=== PATIENT | male | born 1960 | race Caucasian/White ===

== ENCOUNTER 2021-11-29 10:30 | Outpatient (RCR) | payer BC, SELFPAY ==
--- NOTE | 2021-10-12 15:13 | URNOTE ---
Received request for prior auth for Cisplatin ([id number]) and Aloxi ([id number]). Per automated message at [facility], prior auth is not required for these medications. Conf #[id number]
--- NOTE | 2021-10-14 22:49 | ONC.NURNOTE ---
cisplatin dose changed to 100% per request of Dr. Twin Leon 10/14/21. Dosing should be 40mg/m2 weekly concurrent with radiation therapy.
--- NOTE | 2021-10-21 16:01 | ONC.NURNOTE ---
Call to [facility] to confirm 1st chemo appt on Monday instructed to come well hydrated bring binder to appt- as nurses will review contents of binder
--- NOTE | 2021-10-22 14:01 | URNOTE ---
Received request for prior auth for Fosaprepitant ([id number]). Per automated message at [facility], prior authorization is not required. Call ref #[id number]
[2021-10-25 09:08] LABS: Basophils Absolute Auto 0.02 K/uL (0.00-0.30); Basophils Percent Auto 0.2 % (0.0-3.0); Eosinophils Absolute Auto 0.49 K/uL (0.00-0.50); Eosinophils Percent Auto 5.5 % (0.0-7.0); Hematocrit 41.6 % (37.0-53.0); Hemoglobin* 14.1 gm/dL (13.5-17.5); Immature Granulocytes Abs Auto 0.01 K/uL (0.00-0.30); Mean Corpuscular HGB Conc 34 gm/dL (32-36); Mean Corpuscular Hemoglobin 30 pg (26-34); Mean Corpuscular Volume 88 fL (80-100); Monocytes Percent Auto 6.4 % (0.0-11.0); Neutrophils Percent Auto 73.8 % (42.0-72.0); Platelet Count* 284 K/uL (140-440); RDW Coefficient of Variation % 12.3 % (11.5-15.5); Red Blood Count 4.71 m/uL (4.30-5.90); White Blood Count* 8.92 K/uL (4.50-11.00)
[2021-10-25 09:13] LABS: Slide Review Reflex No
[2021-10-25 09:40] LABS: Albumin* 4.1 g/dL (3.3-5.0); Chloride* 105 mmol/L (96-114)
[2021-10-25 09:41] LABS: Potassium* 4.1 mmol/L (3.6-5.1); Sodium* 137 mmol/L (135-149)
[2021-10-25 09:43] LABS: Aspartate Amino Transferase* 24 U/L (12-35); Bilirubin Total* 0.3 mg/dL (0.1-1.5); Carbon Dioxide* 25 mmol/L (20-32); Creatinine* 0.7 mg/dL (0.5-1.5); Estimated Glomerular Filt Rate 105 ml/min
[2021-10-25 09:44] LABS: Alanine Aminotransferase* 24 U/L (4-50); Alkaline Phosphatase* 80 U/L (40-150); Blood Urea Nitrogen* 19 mg/dL (7-30); Calcium* 9.2 mg/dL (8.4-10.6); Glucose* 115 mg/dL (60-115)
[2021-10-26 09:06] VITALS: BP 129/85; PULSE 98; RESP 16; TEMP 36.2; O2SAT 98
[2021-10-26] MEDS: PALONOSETRON 0.25 MG/5 ML inj IV (10:27)
[2021-10-26] MEDS: FOSAPREPITANT 150 MG inj 150 MG in 0.9 % SODIUM CHLORIDE 250 ml 250 ML 510 MG IVPB (10:28)
[2021-10-26] MEDS: 0.9 % SODIUM CHLORIDE 1000 ml 1,000 ML 500 ML IV (10:29)
[2021-10-26] MEDS: dexAMETHasone 10 MG in 0.9 % SODIUM CHLORIDE 100 ml 100 ML 404 MG IVPB (11:15)
[2021-10-26 13:18] LABS: Magnesium* 2.1 mg/dL (1.5-2.6)
--- NOTE | 2021-10-27 08:43 | ONC.NURNOTE ---
Called pt to check in day after 1st chemo; LM to call back with any questions or concerns.
[2021-11-01 09:38] VITALS: BP 113/76; PULSE 97; RESP 16; TEMP 36.2; O2SAT 97
[2021-11-01 10:05] LABS: Basophils Absolute Auto 0.02 K/uL (0.00-0.30); Basophils Percent Auto 0.2 % (0.0-3.0); Eosinophils Absolute Auto 0.51 K/uL (0.00-0.50); Hemoglobin* 14.6 gm/dL (13.5-17.5); Immature Granulocytes Abs Auto 0.03 K/uL (0.00-0.30); Lymphocytes Percent Auto 15.3 % (20-44); Mean Corpuscular HGB Conc 33 gm/dL (32-36); Mean Corpuscular Hemoglobin 30 pg (26-34); Mean Corpuscular Volume 89 fL (80-100); Monocytes Percent Auto 9.3 % (0.0-11.0); Neutrophils Absolute Auto 5.86 K/uL (1.7-7.0); Neutrophils Percent Auto 68.8 % (42.0-72.0); Platelet Count* 296 K/uL (140-440); RDW Coefficient of Variation % 12.4 % (11.5-15.5); Red Blood Count 4.95 m/uL (4.30-5.90); White Blood Count* 8.51 K/uL (4.50-11.00)
[2021-11-01 10:08] LABS: Albumin* 4.3 g/dL (3.3-5.0); Chloride* 98 mmol/L (96-114); Potassium* 4.3 mmol/L (3.6-5.1); Sodium* 136 mmol/L (135-149)
[2021-11-01 10:10] LABS: Creatinine* 0.7 mg/dL (0.5-1.5); Estimated Glomerular Filt Rate 105 ml/min
[2021-11-01 10:11] LABS: Alanine Aminotransferase* 23 U/L (4-50); Alkaline Phosphatase* 78 U/L (40-150); Aspartate Amino Transferase* 21 U/L (12-35); Bilirubin Total* 0.6 mg/dL (0.1-1.5); Blood Urea Nitrogen* 21 mg/dL (7-30); Calcium* 9.6 mg/dL (8.4-10.6); Carbon Dioxide* 30 mmol/L (20-32); Glucose* 109 mg/dL (60-115); Total Protein* 7.3 g/dL (6.0-8.3)
[2021-11-01 10:19] LABS: Slide Review Reflex No
[2021-11-01 10:35] LABS: Magnesium* 2.1 mg/dL (1.5-2.6)
[2021-11-01] MEDS: 0.9 % SODIUM CHLORIDE 1000 ml 1,000 ML 500 ML IV (10:53)
[2021-11-01] MEDS: dexAMETHasone 10 MG in 0.9 % SODIUM CHLORIDE 100 ml 100 ML 404 MG IVPB (11:36)
[2021-11-01] MEDS: PALONOSETRON 0.25 MG/5 ML inj IV (11:36)
[2021-11-01] MEDS: FOSAPREPITANT 150 MG inj 150 MG in 0.9 % SODIUM CHLORIDE 250 ml 250 ML 510 MG IVPB (11:56)
[2021-11-09 09:20] LABS: Basophils Absolute Auto 0.03 K/uL (0.00-0.30); Basophils Percent Auto 0.3 % (0.0-3.0); Eosinophils Absolute Auto 0.29 K/uL (0.00-0.50); Hematocrit 42.5 % (37.0-53.0); Hemoglobin* 14.2 gm/dL (13.5-17.5); Immature Granulocytes Abs Auto 0.01 K/uL (0.00-0.30); Lymphocytes Percent Auto 6.9 % (20-44); Mean Corpuscular HGB Conc 33 gm/dL (32-36); Mean Corpuscular Hemoglobin 29 pg (26-34); Mean Corpuscular Volume 88 fL (80-100); Monocytes Percent Auto 6.9 % (0.0-11.0); Neutrophils Percent Auto 82.8 % (42.0-72.0); Platelet Count* 217 K/uL (140-440); RDW Coefficient of Variation % 12.4 % (11.5-15.5); Red Blood Count 4.83 m/uL (4.30-5.90); White Blood Count* 9.74 K/uL (4.50-11.00)
[2021-11-09 09:23] LABS: Slide Review Reflex No
[2021-11-09 09:26] VITALS: BP 123/78; PULSE 78; RESP 16; TEMP 37.1; O2SAT 98
[2021-11-09 09:41] LABS: Albumin* 4.2 g/dL (3.3-5.0); Chloride* 102 mmol/L (96-114); Sodium* 137 mmol/L (135-149)
[2021-11-09 09:42] LABS: Potassium* 4.2 mmol/L (3.6-5.1)
[2021-11-09 09:44] LABS: Alanine Aminotransferase* 25 U/L (4-50); Alkaline Phosphatase* 84 U/L (40-150); Aspartate Amino Transferase* 21 U/L (12-35); Bilirubin Total* 0.2 mg/dL (0.1-1.5); Blood Urea Nitrogen* 22 mg/dL (7-30); Carbon Dioxide* 28 mmol/L (20-32); Creatinine* 0.7 mg/dL (0.5-1.5); Estimated Glomerular Filt Rate 105 ml/min; Glucose* 102 mg/dL (60-115); Magnesium* 2.1 mg/dL (1.5-2.6); Total Protein* 6.9 g/dL (6.0-8.3)
[2021-11-09 09:45] LABS: Calcium* 9.3 mg/dL (8.4-10.6)
[2021-11-09] MEDS: 0.9 % SODIUM CHLORIDE 1000 ml 1,000 ML 500 ML IV (10:17)
[2021-11-09] MEDS: PALONOSETRON 0.25 MG/5 ML inj IV (11:23)
[2021-11-09] MEDS: dexAMETHasone 10 MG in 0.9 % SODIUM CHLORIDE 100 ml 100 ML 404 MG IVPB (11:23)
[2021-11-09] MEDS: FOSAPREPITANT 150 MG inj 150 MG in 0.9 % SODIUM CHLORIDE 250 ml 250 ML 510 MG IVPB (11:45)
--- NOTE | 2021-11-09 15:12 | ONC.NURNOTE ---
lower lip increase swelling, redness and white line on gums. no open areas. ok to treat per [facility]. DEEP. enc pt to rinse and spit with saltwater or soda water. pt seeing radiologist today and will be showing them his mouth and asking for magic mouth wash.
[2021-11-15 09:13] LABS: Albumin* 4.4 g/dL (3.3-5.0); Basophils Absolute Auto 0.02 K/uL (0.00-0.30); Basophils Percent Auto 0.3 % (0.0-3.0); Chloride* 100 mmol/L (96-114); Eosinophils Absolute Auto 0.25 K/uL (0.00-0.50); Eosinophils Percent Auto 3.4 % (0.0-7.0); Hematocrit 43.5 % (37.0-53.0); Hemoglobin* 14.5 gm/dL (13.5-17.5); Immature Granulocytes Abs Auto 0.01 K/uL (0.00-0.30); Lymphocytes Percent Auto 8.5 % (20-44); Mean Corpuscular HGB Conc 33 gm/dL (32-36); Mean Corpuscular Hemoglobin 30 pg (26-34); Mean Corpuscular Volume 88 fL (80-100); Monocytes Percent Auto 9.3 % (0.0-11.0); Neutrophils Percent Auto 78.4 % (42.0-72.0); Platelet Count* 224 K/uL (140-440); Potassium* 4.2 mmol/L (3.6-5.1); RDW Coefficient of Variation % 12.9 % (11.5-15.5); Red Blood Count 4.92 m/uL (4.30-5.90); Sodium* 136 mmol/L (135-149); White Blood Count* 7.38 K/uL (4.50-11.00)
[2021-11-15 09:15] LABS: Creatinine* 0.7 mg/dL (0.5-1.5); Estimated Glomerular Filt Rate 105 ml/min
[2021-11-15 09:16] LABS: Alanine Aminotransferase* 26 U/L (4-50); Alkaline Phosphatase* 81 U/L (40-150); Calcium* 9.1 mg/dL (8.4-10.6); Carbon Dioxide* 30 mmol/L (20-32); Total Protein* 7.3 g/dL (6.0-8.3)
[2021-11-15 09:18] LABS: Aspartate Amino Transferase* 23 U/L (12-35); Bilirubin Total* 0.3 mg/dL (0.1-1.5); Blood Urea Nitrogen* 23 mg/dL (7-30)
[2021-11-15 09:19] LABS: Glucose* 106 mg/dL (60-115)
[2021-11-15 09:22] LABS: Slide Review Reflex No
[2021-11-15] MEDS: 0.9 % SODIUM CHLORIDE 1000 ml 1,000 ML 500 ML IV (09:57)
[2021-11-15] MEDS: dexAMETHasone 10 MG in 0.9 % SODIUM CHLORIDE 100 ml 100 ML 404 MG IVPB (10:45)
[2021-11-15] MEDS: PALONOSETRON 0.25 MG/5 ML inj IV (10:45)
[2021-11-15] MEDS: FOSAPREPITANT 150 MG inj 150 MG in 0.9 % SODIUM CHLORIDE 250 ml 250 ML 510 MG IVPB (11:04)
[2021-11-22 08:48] LABS: Basophils Absolute Auto 0.02 K/uL (0.00-0.30); Basophils Percent Auto 0.3 % (0.0-3.0); Eosinophils Absolute Auto 0.21 K/uL (0.00-0.50); Eosinophils Percent Auto 2.9 % (0.0-7.0); Hematocrit 42.1 % (37.0-53.0); Hemoglobin* 14.3 gm/dL (13.5-17.5); Immature Granulocytes Abs Auto 0.01 K/uL (0.00-0.30); Lymphocytes Percent Auto 5.4 % (20-44); Mean Corpuscular HGB Conc 34 gm/dL (32-36); Mean Corpuscular Hemoglobin 30 pg (26-34); Mean Corpuscular Volume 88 fL (80-100); Monocytes Percent Auto 10.2 % (0.0-11.0); Neutrophils Percent Auto 81.1 % (42.0-72.0); Platelet Count* 177 K/uL (140-440); White Blood Count* 7.36 K/uL (4.50-11.00)
[2021-11-22 08:49] LABS: Slide Review Reflex No
[2021-11-22 08:59] VITALS: BP 117/81; PULSE 96; RESP 16; TEMP 37.1; O2SAT 97
[2021-11-22 09:00] LABS: Albumin* 4.2 g/dL (3.3-5.0); Chloride* 101 mmol/L (96-114); Sodium* 137 mmol/L (135-149)
[2021-11-22 09:01] LABS: Potassium* 4.2 mmol/L (3.6-5.1)
[2021-11-22 09:03] LABS: Alkaline Phosphatase* 88 U/L (40-150); Aspartate Amino Transferase* 26 U/L (12-35); Bilirubin Total* 0.3 mg/dL (0.1-1.5); Blood Urea Nitrogen* 14 mg/dL (7-30); Carbon Dioxide* 29 mmol/L (20-32); Creatinine* 0.8 mg/dL (0.5-1.5); Estimated Glomerular Filt Rate 101 ml/min; Glucose* 96 mg/dL (60-115); Total Protein* 7.1 g/dL (6.0-8.3)
[2021-11-22 09:04] LABS: Alanine Aminotransferase* 30 U/L (4-50); Calcium* 9.1 mg/dL (8.4-10.6)
[2021-11-22] MEDS: 0.9 % SODIUM CHLORIDE 1000 ml 1,000 ML 500 ML IV (10:00)
[2021-11-22] MEDS: PALONOSETRON 0.25 MG/5 ML inj IV (11:11)
[2021-11-22] MEDS: dexAMETHasone 10 MG in 0.9 % SODIUM CHLORIDE 100 ml 100 ML 404 MG IVPB (11:12)
[2021-11-22] MEDS: FOSAPREPITANT 150 MG inj 150 MG in 0.9 % SODIUM CHLORIDE 250 ml 250 ML 510 MG IVPB (11:36)
--- NOTE | 2021-11-22 15:03 | ONC.NURNOTE ---
Open sore on Rt lower lip. states has had for a few weeks and being followed by radiation tx .
--- NOTE | 2021-11-22 15:08 | ONC.NURNOTE ---
pt went through med list. no changes. states using magic mouth wash with good results.
[2021-11-29 09:04] LABS: Basophils Absolute Auto 0.02 K/uL (0.00-0.30); Basophils Percent Auto 0.3 % (0.0-3.0); Eosinophils Absolute Auto 0.35 K/uL (0.00-0.50); Hemoglobin* 13.4 gm/dL (13.5-17.5); Immature Granulocytes Abs Auto 0.01 K/uL (0.00-0.30); Mean Corpuscular HGB Conc 34 gm/dL (32-36); Mean Corpuscular Hemoglobin 30 pg (26-34); Mean Corpuscular Volume 88 fL (80-100); Monocytes Percent Auto 10.2 % (0.0-11.0); Neutrophils Percent Auto 78.3 % (42.0-72.0); Platelet Count* 160 K/uL (140-440); RDW Coefficient of Variation % 13.4 % (11.5-15.5); Red Blood Count 4.45 m/uL (4.30-5.90); White Blood Count* 5.79 K/uL (4.50-11.00)
[2021-11-29 09:07] LABS: Slide Review Reflex No
[2021-11-29 09:09] VITALS: BP 109/67; PULSE 105; RESP 16; TEMP 37.1; O2SAT 97
[2021-11-29 09:17] LABS: Chloride* 100 mmol/L (96-114)
[2021-11-29 09:18] LABS: Potassium* 4.1 mmol/L (3.6-5.1); Sodium* 135 mmol/L (135-149)
[2021-11-29 09:20] LABS: Alanine Aminotransferase* 25 U/L (4-50); Alkaline Phosphatase* 77 U/L (40-150); Aspartate Amino Transferase* 22 U/L (12-35); Bilirubin Total* 0.4 mg/dL (0.1-1.5); Blood Urea Nitrogen* 21 mg/dL (7-30); Carbon Dioxide* 31 mmol/L (20-32); Creatinine* 0.7 mg/dL (0.5-1.5); Estimated Glomerular Filt Rate 105 ml/min; Glucose* 99 mg/dL (60-115); Total Protein* 6.8 g/dL (6.0-8.3)
[2021-11-29 09:21] LABS: Calcium* 9.4 mg/dL (8.4-10.6); Magnesium* 1.9 mg/dL (1.5-2.6)
[2021-11-29] MEDS: 0.9 % SODIUM CHLORIDE 1000 ml 1,000 ML 500 ML IV (10:30)
[2021-11-29] MEDS: dexAMETHasone 10 MG in 0.9 % SODIUM CHLORIDE 100 ml 100 ML 404 MG IVPB (11:27)
[2021-11-29] MEDS: PALONOSETRON 0.25 MG/5 ML inj IV (11:28)
[2021-11-29] MEDS: FOSAPREPITANT 150 MG inj 150 MG in 0.9 % SODIUM CHLORIDE 250 ml 250 ML 510 MG IVPB (12:02)
--- NOTE | 2021-11-29 12:14 | ONC.NURNOTE ---
IV inflatrated rt f arm. after 500cc NS and Aloxi. pt states no c/o pain at iv site. 500 cc bolus completed with no pump alert. warm blanket applied to site. no reddness. 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 look Aloxi up and no concern mentioned. started a new IV Lt farm with ease.. flushed well.
[2021-11-29] MEDS: SODIUM CHLORIDE 0.9 % (FLUSH) 10 ML SYRINGE IVF (14:41)
== END 2022-04-09 23:59 | disposition home or self-care (01) ==
LOC: CCIC 10:30
PROVIDERS: Clinical Nurse Specialist; Visit Provider Internal Medicine Medical Oncology
DX: Z51.11 Encounter for antineoplastic chemotherapy (principal); C06.9 Malignant neoplasm of mouth, unspecified
CPT/HCPCS: 36415; 80053; 83735; 85025; 96360; 96361; 96366; 96376; 96413; 99203; 99204; 99212; 99214; 99215; J1100; J1453; J2469; J7030; J7050; J7120; J9060